=== PATIENT | female | born 1970 ===

== ENCOUNTER 2017-01-24 13:42 | Emergency (ER) | payer MEDICAID, OTHER ==
[2017-01-24 14:38] VITALS: RESP 18
[2017-01-24 14:53] LABS: RBC URINE 2 /hpf (0-3); URINE BILIRUBIN NEGATIVE (NEGATIVE); URINE BLOOD NEGATIVE (NEGATIVE); URINE COLOR Yellow (YELLOW); URINE GLUCOSE (UA) NORMAL (Normal); URINE KETONE NEGATIVE (NEGATIVE); URINE LEUKOCYTE ESTERASE NEG Leu/uL (Negative); URINE PROTEIN NEGATIVE (NEGATIVE); WBC URINE < 1 /hpf (0-5)
--- NOTE | 2017-01-24 15:59 | C.PDOC ---
History Of Present Illness Pt c/o low back pain. Denies injury. Time Seen by Provider: 01/24/17 14:08 Chief Complaint (Nursing): Back Pain History Per: Patient Onset/Duration Of Symptoms: Days Current Symptoms Are (Timing): Still Present Severity: Moderate Associated Symptoms: None. denies: Incontinence, New Weakness, New Numbness Exacerbating Factor(s): Turning, Movement Additional History Per: Prior Records Past Medical History Reviewed: Historical Data, Nursing Documentation, Vital Signs Vital Signs: Last Vital Signs Temp 97.8 F 01/24/17 14:37 Pulse 77 01/24/17 14:37 Resp 18 01/24/17 14:37 BP 104/71 01/24/17 14:37 Pulse Ox 99 01/24/17 14:37 - Medical History PMH: Gastritis Surgical History: Cholecystectomy, - [facility] Procedures LAPAROSCOPIC CHOLECYSTECTOMY (04/26/14) OTHER OPEN UMBILICAL HERNIORRHAPHY (04/26/14) Family History: States: Unknown Family Hx - Social History Hx Tobacco Use: Yes (heavy smoker) Hx Alcohol Use: No Hx Substance Use: No - Immunization History Hx Tetanus Toxoid Vaccination: No Hx Influenza Vaccination: Yes Hx Pneumococcal Vaccination: No Review Of Systems Except As Marked, All Systems Reviewed And Found Negative. Constitutional: Negative for: Fever, Weakness Cardiovascular: Negative for: Chest Pain Respiratory: Negative for: Shortness of Breath Gastrointestinal: Negative for: Vomiting, Abdominal Pain Genitourinary: Negative for: Dysuria Musculoskeletal: Positive for: Back Pain. Negative for: Neck Pain Skin: Negative for: Rash Neurological: Negative for: Weakness, Numbness Physical Exam - Physical Exam Appears: Non-toxic, No Acute Distress Skin: Normal Color, Warm, Dry, No Rash Head: Atraumatic, Normacephalic Eye(s): bilateral: Normal Inspection, PERRL, EOMI Neck: Normal ROM, Supple Cardiovascular: Rhythm Regular Respiratory: Normal Breath Sounds, No Accessory Muscle Use Gastrointestinal/Abdominal: Soft, No Tenderness Back: Paraspinal Tenderness Extremity: Normal ROM Neurological/Psych: Oriented x3, Normal Motor, Normal Sensation ED Course And Treatment - Laboratory Results Lab Interpretation: No Acute Changes Urine POC: Negative O2 Sat by Pulse Oximetry: 99 Pulse Ox Interpretation: Normal Reassessment Condition: Improved Disposition Counseled Patient/Family Regarding: Studies Performed, Diagnosis, Need For Followup, Rx Given - Disposition Referrals: Gastell,John F, MD [Medical Doctor] - Disposition: HOME/ ROUTINE Disposition Time: 15:59 Condition: IMPROVED Additional Instructions: Follow up with your doctor for further evaluation and treatment. Return to the ER if you develop abdominal pain, weakness, numbness, trouble urinating, worsening of symptoms or if you have any other concerns. Prescriptions: traMADol/Acetaminophen [Ultracet 325 MG-37.5 MG] 1 tab PO Q4 PRN #30 tab PRN Reason: Pain Instructions: Back Pain (ED) Forms: [employer] (Kinyarwanda) Print Language: FAROESE - Clinical Impression Clinical Impression: Low back pain
[2017-01-24 16:11] VITALS: BP 100/67; PULSE 69; TEMP 98.7; O2SAT 97
== END 2017-01-24 16:11 | disposition home or self-care (01) ==
LOC: C.ER 13:42
DX: M54.5 Low back pain (principal); Z87.891 Personal history of nicotine dependence
CPT/HCPCS: 81001; 84703; 96372; 99284; J1885